=== PATIENT | male | born 1975 | race Caucasian/White ===

== ENCOUNTER 2016-08-30 07:59 | Emergency (ER) | payer SELFPAY ==
[~2016-08-30] VITALS: Ht 167.6 cm; Wt 82.0 kg
[2016-08-30] MEDS ORDERED: IBUPROFEN 600MG TABLET PO ONE (09:00)
[2016-08-30 10:43] VITALS: BP 142/89
== END 2016-08-30 10:45 | disposition home or self-care (01) ==
LOC: ER 08:19
DX: M25.512 Pain in left shoulder (principal); F17.200 Nicotine dependence, unspecified, uncomplicated; R68.84 Jaw pain; V49.49XA Driver injured in collision with other motor vehicles in traffic accident, initial encounter; Y93.89 Activity, other specified; Y99.9 Unspecified external cause status; Y92.89 Other specified places as the place of occurrence of the external cause
CPT/HCPCS: 99283; Z7610